=== PATIENT | female | born 1950 | race African-American/Black ===

== ENCOUNTER 2019-09-21 15:39 | Emergency (ER) | payer MEDICARE, MEDICAID ==
[~2019-09-21] VITALS: Ht 162.6 cm; Wt 61.0 kg
[~2019-09-21 15:39] MED LIST: CALC-38 PO; CYCL5TAB PO; DOCU-100 PO; LISI1TAB13 PO; OMEP20CA14 PO; [UNRECOGNIZED DRUG - OTHER]
[2019-09-21] MEDS ORDERED: SODIUM CHLORIDE 0.9% 500 ML IV ONE (18:15)
[2019-09-21 18:36] LABS: BASOPHILS % 0.6 % (0.0-2.0); EOSINOPHILS % 1.4 % (0.0-5.0); HEMATOCRIT. 41.9 % (36.0-48.0); HEMOGLOBIN. 13.9 g/dL (12.0-16.0); LYMPHOCYTES % 30.6 % (20.0-50.0); MEAN CORPUSCULAR HEMOGLOBIN 30.4 pg (28.0-32.0); MEAN CORPUSCULAR VOLUME 91.8 fL (81.0-99.0); MEAN PLATELET VOLUME 7.5 fl (7.4-10.4); MONOCYTES % 8.3 % (2.0-8.0); NEUTROPHILS % 59.1 % (40.0-76.0); PLATELET 282 x1000/uL (130-400); RED BLOOD CELL COUNT 4.57 mill/uL (4.2-5.4)
[2019-09-21 18:42] LABS: CHLORIDE 103 mEq/L (98-107)
[2019-09-21 20:00] VITALS: BP 95/59
== END 2019-09-21 20:35 | disposition home or self-care (01) ==
LOC: ER 15:39
DX: E86.0 Dehydration (principal)
CPT/HCPCS: 36415; 71045; 80053; 83880; 84484; 85025; 93005; 99284; J7040